=== PATIENT | male | born 1980 | race Caucasian/White ===

== ENCOUNTER 2016-11-30 08:53 | Emergency (ER) | payer OTHER ==
[~2016-11-30] VITALS: Ht 182.9 cm; Wt 61.2 kg
[~2016-11-30 08:53] MED LIST: IBUP600T16 PO
--- NOTE | 2016-11-30 09:37 | PHYS DOC ---
General Chief Complaint: BACK INJURY Stated Complaint: BACK PAIN Time Seen by MD: 08:59 Source: patient Exam Limitations: no limitations Problems: History of Present Illness Initial Comments Patient is a 36-year-old male who comes to the ED complaining of back pain resulting from a fall. Patient says this morning at home he lost his balance while descending a flight of stairs and fell backwards hitting his thoracolumbar spine on the wooden stairs. He has diffuse midline and bilateral soft tissue back pain and stiffness. He denies any leg symptoms or weakness, saddle anesthesia, or bowel/ bladder symptoms. 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 He denies any other injuries from the fall specifically no head trauma headache loss of consciousness or neck discomfort. Pain is described as sharp moderate intensity with movement and relieved with rest. Occurred: this morning Severity: moderate Injuries/Pain Location: back Context: lost balance Loss of Consciousness: no loss of consciousness Modifying Factors: worse with jarring, worse with movement, improves with rest Associated Symptoms: muscle spasms (he hasn't that all he was), other Allergies: Coded Allergies: No Known Drug Allergies (Unverified , 11/30/16) Past Medical History Medical History: no medical history Surgical History: no surgical history Social History Smoker: cigarettes, greater than 1 pack/day Alcohol: occasionally Drugs: none Review of Systems Constitutional: denies chills, denies diaphoresis, denies fever Respiratory: denies cough, denies shortness of breath, denies wheezing Cardiovascular: denies chest pain, denies palpitations, denies syncope Gastrointestinal: denies abdominal pain, denies diarrhea, denies nausea, denies vomiting Genitourinary: denies dysuria, denies frequency, denies hematuria Musculoskeletal: see HPI Psychiatric/Neurological: denies headache, denies numbness, denies paresthesia , denies pre-existing deficit, denies weakness Physical Exam General Appearance: WD/WN, no apparent distress Head: no evidence of injury Eyes: bilateral eye normal inspection, bilateral eye PERRL, bilateral eye EOMI Ears, Nose, Mouth, Throat: hearing grossly normal, no evidence of ENT injury Neck: non-tender, full range of motion Cardiovascular/Respiratory: normal peripheral pulses, no respiratory distress Gastrointestinal: non tender, soft Back: no CVA tenderness (mild diffuse midline spinal discomfort, no abrasions/ swelling/bruising or other evidence of trauma), decreased range of motion, muscle spasm Extremities: normal range of motion, non-tender 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 PHYSICIAN: CARSON CASTILLO DO REASON: fall, midline back pain PROCEDURE: LUMBAR SPINE 2-3V LUMBAR SPINE 2-3V Clinical Indication: fall, midline back pain Comparison: CT abdomen and pelvis dated 02/14/2011 Findings: There are 5 nonrib-bearing lumbar-type vertebral bodies. Straightening of the normal lumbar lordosis. Grade 1 retrolisthesis of L5 on S1. Vertebral body heights and disc spaces are maintained. No acute fracture. Density within the left upper abdominal quadrant may relate to renal calculus. Otherwise no significant soft tissue abnormality. IMPRESSION: No acute fracture or malalignment. DICTATED AND SIGNED BY: JOYCE FRANCOIS MD DATE: 11/30/16 0957 CC: OLE MOYA MD; CARSON CASTILLO DO ~ PATIENT: RON RIVERA ACCOUNT: [id number] : 1980 LOCATION: ER AGE: 36 SEX: M EXAM STATUS: REG ER ORD. PHYSICIAN: CARSON CASTILLO DO REASON: fall, midline back pain PROCEDURE: THORACIC SPINE 3V THORACIC SPINE 3V Clinical Indication: fall, midline back pain Comparison: None. Findings: The normal thoracic kyphosis is maintained. Vertebral body heights and disc spaces are normal. No acute fracture. No significant soft tissue abnormality. IMPRESSION: No acute fracture or malalignment. DICTATED AND SIGNED BY: JOYCE FRANCOIS MD DATE: 11/30/16 0954 CC: OLE MOYA MD; CARSON CASTILLO DO ~ I discussed findings with the patient as well as the treatment plan. He feels he 'll be unable to work for a few days due the discomfort so a work excuse was given. He is advised to stop smoking and expressed agreement and understanding with the treatment plan. Departure Time of Disposition: 10:14 Disposition: 01 HOME, SELF-CARE Diagnosis: fall, thoracolumbar strain Condition: GOOD Patient Instructions: Muscle Strain, [id number] Additional Instructions: Rest, keep activity to "pain-free." Off work thru 12/03. OTC tylenol/ibuprofen as needed. Starting Wednesday, heating pad to affected area 20 minutes 4-6 times daily followed by gentle stretching. Follow up with your doctor Wednesday for recheck. Stop smoking, seek medical assistance if necessary. Return to ED with new or changing symptoms. CARSON CASTILLO DO Nov 30, 2016 09:37
--- NOTE | 2016-11-30 09:59 | RAD ---
THORACIC SPINE 3V Clinical Indication: fall, midline back pain Comparison: None. Findings: The normal thoracic kyphosis is maintained. Vertebral body heights and disc spaces are normal. No acute fracture. No significant soft tissue abnormality. IMPRESSION: No acute fracture or malalignment.
--- NOTE | 2016-11-30 10:03 | RAD ---
LUMBAR SPINE 2-3V Clinical Indication: fall, midline back pain Comparison: CT abdomen and pelvis dated 02/14/2011 Findings: There are 5 nonrib-bearing lumbar-type vertebral bodies. Straightening of the normal lumbar lordosis. Grade 1 retrolisthesis of L5 on S1. Vertebral body heights and disc spaces are maintained. No acute fracture. Density within the left upper abdominal quadrant may relate to renal calculus. Otherwise no significant soft tissue abnormality. IMPRESSION: No acute fracture or malalignment.
[2016-11-30 10:20] VITALS: BP 127/82
[2016-11-30] MEDS ORDERED: KETOROLAC 60 MG/2 ML VIAL. IM ONE (10:45)
== END 2016-11-30 10:20 | disposition home or self-care (01) ==
LOC: ER 08:53
DX: S29.012A Strain of muscle and tendon of back wall of thorax, initial encounter (principal); S39.012A Strain of muscle, fascia and tendon of lower back, initial encounter; F17.210 Nicotine dependence, cigarettes, uncomplicated; W18.09XA Striking against other object with subsequent fall, initial encounter; Y93.89 Activity, other specified; Y99.8 Other external cause status; Y92.89 Other specified places as the place of occurrence of the external cause
CPT/HCPCS: 72072; 72100; 96372; 99284; J1885

== ENCOUNTER 2016-12-29 15:58 | Emergency (ER) | payer OTHER ==
[~2016-12-29] VITALS: Ht 182.9 cm; Wt 61.2 kg
[2016-12-29] MEDS ORDERED: FLUORESCEIN 1MG EYE STRIP. ONE (16:34)
[2016-12-29] MEDS ORDERED: TETRACAINE 0.5% OPHTH SOLUTION 4ML BOTTLE. OU ONE (16:40)
[2016-12-29] MEDS ORDERED: ERYT1OIN6 OP (16:58)
[2016-12-29] MEDS ORDERED: HYDR-971 PO (16:58)
--- NOTE | 2016-12-29 16:58 | PHYS DOC ---
Past History Past Medical History: No Pertinent History Past Surgical History: No Surgical History Alcohol Use: Occasionally Drug Use: None Adult General Chief Complaint Chief Complaint: EYE PROBLEMS HPI HPI Patient is a 36-year-old male presenting to the emergency department for evaluation of right eye foreign body and irritation. He thinks that he got something in his eye yesterday but he does not know what but has been quite irritated and he has been itching at it now it is red. He says that is slightly blurry due to the tearing and he also had some yellowish drainage today as well. He does not wear glasses or contact lenses. Review of Systems Review of Systems Constitutional: Denies fever or chills [] Eyes: + change in visual acuity, redness, eye pain [] Current Medications Current Medications Current Medications Medications (Trade) Dose Ordered Sig/Deena Start Time Stop Time Status Last Admin Dose Admin Fluorescein Sodium (Ful-Usnni 1mg) 1 strip STK-MED ONCE 12/29/16 16:34 12/29/16 16:35 DC Tetracaine HCl (Tetracaine) 1 drop 1X ONCE 12/29/16 16:40 12/29/16 16:41 DC Allergies Allergies Allergies Coded Allergies Type Severity Reaction Last Updated Verified No Known Drug Allergies 11/30/16 No Physical Exam Physical Exam Constitutional: Well developed, well nourished, no acute distress, non-toxic appearance. [] HENT: Normocephalic, atraumatic, bilateral external ears normal, oropharynx moist, no oral exudates, nose normal. [] Eyes: PERRLA, EOMI, conjunctiva injected with diffuse chemosis and there is a small metallic-appearing foreign body at approximately 7 o'clock position on iris. There is no hyphema. There is some yellowish discharge. There is direct photophobia but no consensual photophobia. Current Patient Data Vital Signs Vital Signs Date Time Temp Pulse Resp B/P (MAP) Pulse Ox O2 Delivery O2 Flow Rate FiO2 12/29/16 16:05 98.8 73 20 98 Room Air EKG EKG [] Radiology/Procedures Radiology/Procedures [] Course & Med Decision Making Course & Med Decision Making Right eye foreign body removed after Tetracaine applied. An eye som was used as the foreign body appeared quite embedded. There was successful removal of the foreign body. His eye does appear quite inflamed and he likely does have some iritis component and possibly conjunctivitis as well. We'll start on erythromycin ointment and I made an appointment for him with Dr. Quinn [facility] Patient aware and agreeable with plan for discharge and verbalized understanding of the need for short-term follow-up and strict ER return precautions discussed worsening pain vision changes or other general concerns. Dragon Disclaimer Dragon Disclaimer This chart was dictated in whole or in part using Voice Recognition software in a busy, high-work load, and often noisy Emergency Department environment. It may contain unintended and wholly unrecognized errors or omissions. Departure Departure: Impression: Primary Impression: Foreign body in eye Disposition: 01 HOME, SELF-CARE Condition: GOOD Referrals: OLE MOYA MD (PCP) Patient Instructions: Eye - Corneal Foreign Body Scripts Hydrocodone Bit/Acetaminophen (NORCO 5-325 TABLET) 1 Each Tablet 1 TAB PO PRN Q6HRS Y for PAIN, #10 TAB 0 Refills Prov: JENNIFER URBINA DO 12/29/16 Erythromycin Base (Erythromycin) 1 Gm Oint...g. 1 GM OP Q2HR, #1 MISC ERYTHROMYCIN OINT .5%. APPLY Q2 HOURS TO R EYE WHILE AWAKE Prov: JENNIFER URBINA DO 12/29/16 Problem Qualifiers Primary Impression: Foreign body in eye Encounter type: initial encounter Laterality: right Qualified Codes: T15.91XA - Foreign body on external eye, part unspecified, right eye, initial encounter JENNIFER URBINA DO Dec 29, 2016 16:58
[2016-12-29] MEDS ORDERED: DIPHTH,PERTUSS(ACELL),TET TOX 0.5 ML DISP.SYRIN. VAX IM ONE ×2 (17:09→17:30)
[2016-12-29 17:15] VITALS: BP 146/80
== END 2016-12-29 19:20 | disposition home or self-care (01) ==
LOC: ER 15:58
DX: T15.11XA Foreign body in conjunctival sac, right eye, initial encounter (principal)
CPT/HCPCS: 65210; 90471; 90715; 99284-25

== ENCOUNTER 2018-11-21 09:58 | Emergency (ER) | payer OTHER ==
[~2018-11-21] VITALS: Ht 182.9 cm; Wt 62.6 kg
[~2018-11-21 09:58] MED LIST changes: +ERYT1OIN6 OP; +HYDR-3165 PO
[2018-11-21 10:11] VITALS: BP 126/79
[2018-11-21] MEDS ORDERED: FLUORESCEIN 1MG EYE STRIP. ONE (10:29)
--- NOTE | 2018-11-21 10:31 | PHYS DOC ---
Past History Past Medical History: No Pertinent History Past Surgical History: No Surgical History Additional Smoking Information: 05/11 PPD Alcohol Use: None Drug Use: None Adult General Chief Complaint Chief Complaint: EYE PROBLEMS HPI HPI The patient is a 38-year-old male who presents for evaluation of left eye redness, tearing, and discomfort. He states it first started yesterday evening. He denies any foreign body sensation. He has 4 children at home and denies any recent contact with pink eye or eye infections. He does not wear contacts. He is alert and oriented 4, calm, appears to be in no distress this time. His vision has already been evaluated by the nurse and is 20/20 in each eye and 20/15 with both eyes. Review of Systems Review of Systems Constitutional: Denies fever or chills [] Eyes: Denies change in visual acuity, left eye redness and discomfort and tearing HENT: Denies nasal congestion or sore throat [] Respiratory: Denies cough or shortness of breath [] Cardiovascular: No additional information not addressed in HPI [] GI: Denies abdominal pain, nausea, vomiting, bloody stools or diarrhea [] : Denies dysuria or hematuria [] Musculoskeletal: Denies back pain or joint pain [] Integument: Denies rash or skin lesions [] Neurologic: Denies headache, focal weakness or sensory changes [] Endocrine: Denies polyuria or polydipsia [] All other systems were reviewed and found to be within normal limits, except as documented in this note. Current Medications Current Medications Current Medications Medications (Trade) Dose Ordered Sig/[facility] Start Time Stop Time Status Last Admin Dose Admin Tetracaine HCl (Tetracaine) 1 drop 1X ONCE 11/21/18 10:50 11/21/18 10:51 Allergies Allergies Allergies Coded Allergies Type Severity Reaction Last Updated Verified No Known Drug Allergies 11/30/16 No Physical Exam Physical Exam Constitutional: Well developed, well nourished, no acute distress, non-toxic appearance. [] HENT: Normocephalic, atraumatic, bilateral external ears normal, oropharynx moist, no oral exudates, nose normal. [] Eyes: PERRLA, EOMI, left eye with significant conjunctivitis, clear tearing is present and body seen Neck: Normal range of motion, no tenderness, supple, no stridor. [] Cardiovascular:Heart rate regular rhythm, no murmur [] Lungs & Thorax: Bilateral breath sounds clear to auscultation [] Abdomen: Bowel sounds normal, soft, no tenderness, no masses, no pulsatile masses. [] Skin: Warm, dry, no erythema, no rash. [] Back: No tenderness, no CVA tenderness. [] Extremities: No tenderness, no cyanosis, no clubbing, ROM intact, no edema. [] Neurologic: Alert and oriented X 3, normal motor function, normal sensory function, no focal deficits noted. [] Psychologic: Affect normal, judgement normal, mood normal. [] Current Patient Data Vital Signs Vital Signs Date Time Temp Pulse Resp B/P (MAP) Pulse Ox O2 Delivery O2 Flow Rate FiO2 11/21/18 10:11 97.9 99 19 98 Room Air EKG EKG [] Radiology/Procedures Radiology/Procedures [] Course & Med Decision Making Course & Med Decision Making @1100 - bilateral eyes instilled with tetracaine. Left eye evaluated with fluorescein and Wood's lamp. No corneal abrasion or foreign body seen. Repeated measurements show an intraocular pressure on the left of 35-38 and on the right of 30-32. Patient that I was concerned about the possibility of glaucoma given these intraocular pressures in the associated headache he has been having. I discussed the case with Dr. Villanueva from ophthalmology who would like the patient sent discharged and sent over to him to be evaluated. The patient agrees with this plan. He is stable for discharge at this time. Dragon Disclaimer Dragon Disclaimer This electronic medical record was generated, in whole or in part, using a voice recognition dictation system. Departure Departure: Impression: Primary Impression: Acute left eye pain Additional Impression: Conjunctivitis, left eye Disposition: 01 HOME, SELF-CARE Condition: STABLE Referrals: DEE DEE VILLANUEVA DO Patient Instructions: Bacterial Conjunctivitis, Glaucoma Additional Instructions: Go directly to Dr. Villanueva's office. 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 Problem Qualifiers YOSELYN CUNNINGHAM DO Nov 21, 2018 10:31
[2018-11-21] MEDS ORDERED: TETRACAINE 0.5% OPHTH SOLUTION 4ML BOTTLE. OS ONE (10:50)
[2018-11-21] MEDS ORDERED: FLUORESCEIN 1MG EYE STRIP. OS ONE (10:50)
== END 2018-11-21 11:20 | disposition home or self-care (01) ==
LOC: ER 09:58
DX: H10.9 Unspecified conjunctivitis (principal); F17.200 Nicotine dependence, unspecified, uncomplicated
CPT/HCPCS: 99283

== ENCOUNTER 2019-02-13 19:06 | Emergency (ER) | payer MEDICAID, OTHER ==
[~2019-02-13] VITALS: Ht 182.9 cm; Wt 63.0 kg
--- NOTE | 2019-02-13 19:50 | RAD ---
Exam: Chest 2 views INDICATION: Cough, fever TECHNIQUE: Frontal and lateral views the chest Comparisons: None FINDINGS: The cardiomediastinal silhouette and pulmonary vessels are within normal limits. Patchy opacity at the left lower lobe. No pleural effusion. IMPRESSION: Left lower lobe pneumonia. Follow-up imaging posttreatment to ensure resolution. Electronically signed by: Danilo Estevez MD (02/13/2019 7:47 PM) [facility]
--- NOTE | 2019-02-13 19:55 | PHYS DOC ---
Past History Past Medical History: No Pertinent History Past Surgical History: No Surgical History Alcohol Use: None Drug Use: None Adult General Chief Complaint Chief Complaint: COUGH HPI HPI 38-year-old male presents with several day history of cough. He is a smoker and has some cough most the time. Over the last day, he feels a discomfort must worse. He has generalized chest discomfort due to the coughing. He does not believe he has had a fever. He has a history of pneumonia in the past. He has no other complaints at this time. Review of Systems Review of Systems Constitutional: Denies fever or chills [] Eyes: Denies change in visual acuity, redness, or eye pain [] HENT: Denies nasal congestion or sore throat [] Respiratory: Cough without shortness of breath [] Cardiovascular: No additional information not addressed in HPI [] GI: Denies abdominal pain, nausea, vomiting, bloody stools or diarrhea [] : Denies dysuria or hematuria [] Musculoskeletal: Denies back pain or joint pain [] Integument: Denies rash or skin lesions [] Neurologic: Denies headache, focal weakness or sensory changes [] Endocrine: Denies polyuria or polydipsia [] All other systems were reviewed and found to be within normal limits, except as documented in this note. Allergies Allergies Allergies Coded Allergies Type Severity Reaction Last Updated Verified No Known Drug Allergies 11/30/16 No Physical Exam Physical Exam Constitutional: Well developed, well nourished, no acute distress, non-toxic appearance. [] HENT: Normocephalic, atraumatic, bilateral external ears normal, oropharynx mois t, no oral exudates, nose normal. [] Eyes: PERRLA, EOMI, conjunctiva normal, no discharge. [] Neck: Normal range of motion, no tenderness, supple, no stridor. [] Cardiovascular:Heart rate regular rhythm, no murmur [] Lungs & Thorax: Crackles at the left base[] Abdomen: Bowel sounds normal, soft, no tenderness, no masses, no pulsatile masses. [] Skin: Warm, dry, no erythema, no rash. [] Back: No tenderness, no CVA tenderness. [] Extremities: No tenderness, no cyanosis, no clubbing, ROM intact, no edema. [] Neurologic: Alert and oriented X 3, normal motor function, normal sensory function, no focal deficits noted. [] Psychologic: Affect normal, judgement normal, mood normal. [] EKG EKG [] Radiology/Procedures Radiology/Procedures [] Impressions: Exam: Chest 2 views INDICATION: Cough, fever TECHNIQUE: Frontal and lateral views the chest Comparisons: None FINDINGS: The cardiomediastinal silhouette and pulmonary vessels are within normal limits. Patchy opacity at the left lower lobe. No pleural effusion. IMPRESSION: Left lower lobe pneumonia. Follow-up imaging posttreatment to ensure resolution. Electronically signed by: Brian Thornton MD (02/13/2019 7:47 PM) [facility] DICTATED AND SIGNED BY: BRIAN THORNTON MD DATE: 02/13/191946 CC: JM RÍOS DO; OLE MOYA MD ~ Course & Med Decision Making Course & Med Decision Making Pertinent Labs and Imaging studies reviewed. (See chart for details) Patient has a left-sided pneumonia. He does not have a fever. He has never had a complicated pneumonia in the past. I will attempt to treat him as an outpatient. We will give 500 mg of azithromycin in the ED followed by 4 more days of 250 mg at home. He is stable for discharge at this time. He will return if he starts running a fever at home or his condition worsens. [] Dragon Disclaimer Dragon Disclaimer This electronic medical record was generated, in whole or in part, using a voice recognition dictation system. Departure Departure: Impression: Primary Impression: Pneumonia Disposition: HOME, SELF-CARE Condition: STABLE Referrals: OLE MOYA MD (PCP) Patient Instructions: Pneumonia, Adult, [id number] Scripts Azithromycin (AZITHROMYCIN TABLET) 250 Mg Tablet 250 MG PO DAILY for ANTI-BIOTIC for 4 Days, #4 TAB 0 Refills start 02/14/2019 Prov: JM RÍOS DO 02/13/19 Problem Qualifiers Primary Impression: Pneumonia Pneumonia type: due to unspecified organism Laterality: left Lung location: lower lobe of lung Qualified Codes: J18.1 - Lobar pneumonia, unspecified organism JM RÍOS DO Feb 13, 2019 19:55
[2019-02-13] MEDS ORDERED: AZIT250T6 PO (20:13)
[2019-02-13] MEDS ORDERED: AZITHROMYCIN 250 MG TABLET. PO ONE (20:15)
[2019-02-13 20:40] VITALS: BP 129/72
== END 2019-02-13 20:43 | disposition home or self-care (01) ==
LOC: ER 19:06
DX: J18.1 Lobar pneumonia, unspecified organism (principal)
CPT/HCPCS: 71046; 99284; J0456

== ENCOUNTER 2019-07-06 18:34 | Emergency (ER) | payer MEDICAID ==
[~2019-07-06] VITALS: Ht 182.9 cm; Wt 64.2 kg
[~2019-07-06 18:34] MED LIST changes: +AZIT250T6 PO
[2019-07-06 18:50] VITALS: BP 133/87
--- NOTE | 2019-07-06 19:06 | PHYS DOC ---
Past History Past Medical History: No Pertinent History Past Surgical History: No Surgical History Alcohol Use: None Drug Use: None Adult General HPI HPI Patient is a 39-year-old male who presents to the emergency department for evaluation. He states yesterday he began expressing some left eye redness, tearing, and photosensitivity. He denies any vision changes, he denies any injuries or headache, he denies any fevers. He denies any other complaints. He states he had similar symptoms in this eye in the past. He does not work contact lenses. There are no alleviating or exacerbating factors to his symptoms other than as noted above. Review of Systems Review of Systems Constitutional: Denies fever or chills [] Eyes: Denies change in visual acuity,, or purulent discharge. Reports clear discharge.[] HENT: Denies nasal congestion or sore throat [] Respiratory: Denies cough or shortness of breath [] Neurologic: Denies headache, focal weakness or sensory changes [] Allergies Allergies Allergies Coded Allergies Type Severity Reaction Last Updated Verified No Known Drug Allergies 11/30/16 No Physical Exam Physical Exam PHYSICAL EXAM: CONSTITUTIONAL: Well developed, well nourished HEAD: normocephalic, atraumatic EENT: PERRL, EOMI. Conjunctivae are injected on the left, clear on the right. There is direct and consensual photophobia. Ocular movement is painless. Fluorescein examination is unremarkable. Intraocular pressures, measured with a tonometer, or 20 on the right, 19 on the left. NECK: Supple, non-tender; no meningismus. LUNGS: Lungs CTA, breathing even and unlabored. Normal air movement. HEART: Regular rate and rhythm, no murmur EXTREM: Normal ROM; no deformity, no calf tenderness. Normal pulses palpable in all extremities. There is no pedal edema. SKIN: No rash; no diaphoresis NEURO: Alert; normal speech and cognition; CN's grossly intact; strength grossly intact without focal deficit. 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 The importance of close follow-up and return precautions were discussed in detail. Dragon Disclaimer Dragon Disclaimer This electronic medical record was generated, in whole or in part, using a voice recognition dictation system. Departure Departure: Impression: Primary Impression: Iritis Disposition: 01 HOME, SELF-CARE Condition: STABLE Referrals: OLE MOYA MD (PCP) DEE DEE VILLANUEVA DO Patient Instructions: Iritis Scripts Olopatadine Hcl (PATANOL) 5 Ml Drops 1 DROP OS BID for -, #5 ML 1 Refill Prov: JENNIFER UP MD 07/06/19 Cyclopentolate Hcl (CYCLOPENTOLATE HCL) 2 Ml Drops 1 DROP OS QID for -, #2 ML 0 Refills Prov: JENNIFER UP MD 07/06/19 JENNIFER PU MD Jul 06, 2019 19:06
[2019-07-06] MEDS ORDERED: TETRACAINE 0.5% OPHTH SOLUTION 4ML BOTTLE. OU ONE (19:15)
[2019-07-06] MEDS ORDERED: FLUORESCEIN 1MG EYE STRIP. OU ONE (19:15)
[2019-07-06] MEDS ORDERED: OLOP5DRO OS (19:34)
[2019-07-06] MEDS ORDERED: CYCL2DRO5 OS (19:34)
== END 2019-07-06 19:50 | disposition home or self-care (01) ==
LOC: ER 18:34
DX: H20.9 Unspecified iridocyclitis (principal)
CPT/HCPCS: 99283